=== PATIENT | female | born 1980 | race Caucasian/White ===

== ENCOUNTER 2017-03-27 23:02 | Emergency (ER) | payer OTHER ==
[~2017-03-27] VITALS: Ht 167.6 cm; Wt 123.1 kg
[2017-03-28] MEDS ORDERED: ONDANSETRON 2MG/ML, 2ML ONE (00:59)
[2017-03-28] MEDS ORDERED: MORPHINE SULFATE 4 MG/ML, 1ML ONE (00:59)
[2017-03-28] MEDS ORDERED: MORPHINE SULFATE 4 MG/ML, 1ML IVPush PRN (01:00)
[2017-03-28] MEDS ORDERED: SODIUM CHLORIDE FLUSH 10ML SYR IVF ONE (01:00)
[2017-03-28] MEDS ORDERED: ONDANSETRON 2MG/ML, 2ML IVPush ONE (01:00)
[2017-03-28] MEDS ORDERED: SODIUM CHLORIDE 0.9% 1,000ML IVBOLUS ONE (01:00)
[2017-03-28 01:16] LABS: HEMATOCRIT 41.6 % (34.6-47.8); WHITE BLOOD COUNT 13.2 x10^3/uL (3.4-10)
[2017-03-28 01:22] LABS: ASPARTATE AMINO TRANSFERASE 13 U/L (15-37); BLOOD UREA NITROGEN 7 mg/dL (7-18)
[2017-03-28 02:12] LABS: HCG UR OBC PASS
[2017-03-28 02:16] LABS: PATH.CAST-FLAG NOT PRESENT; SPERM-FLAG NOT PRESENT; SRC-FLAG NOT PRESENT; XTAL-FLAG NOT PRESENT; YLC-FLAG NOT PRESENT
[2017-03-28 04:18] VITALS: BP 149/89
== END 2017-03-28 04:31 | disposition home or self-care (01) ==
LOC: ED 03-28 02:10
DX: K80.20 Calculus of gallbladder without cholecystitis without obstruction (principal); I10 Essential (primary) hypertension; E78.5 Hyperlipidemia, unspecified
CPT/HCPCS: 36415; 76700; 80053; 81001; 81025; 83690; 85025; 87086; 96361; 96374; 96375; 99285; J2405; J7030

== ENCOUNTER → 2017-05-04 | Outpatient (CLI) | payer OTHER | LOC: STAR 09:28 | PROVIDERS: ATTEND Surgery Vascular Surgery | DX: Z02.9 Encounter for administrative examinations, unspecified (principal) ==

== ENCOUNTER 2017-05-13 10:52 | Day surgery (SDC) | payer OTHER ==
[~2017-05-13] VITALS: Ht 165.1 cm; Wt 116.9 kg
[~2017-05-13 10:52] MED LIST: BUPIVACAINE/PF 0.5% ONE
[2017-05-13] MEDS ORDERED: MIDAZOLAM 1 MG/ML, 2ML ONE (11:35)
[2017-05-13] MEDS ORDERED: ROCURONIUM 10 MG/ML ONE ×2 (11:36→12:44)
[2017-05-13] MEDS ORDERED: PROPOFOL 10 MG/ML, 20ML ONE (11:36)
[2017-05-13] MEDS ORDERED: FENTANYL PF 100 MCG/2ML ONE ×3 (11:36→14:01)
[2017-05-13] MEDS ORDERED: DEXAMETHASONE 4 MG/ML, 1ML ONE ×3 (11:38→12:44)
[2017-05-13] MEDS ORDERED: ONDANSETRON 2MG/ML, 2ML ONE (11:38)
[2017-05-13] MEDS ORDERED: CEFOTETAN PMX 2GM/50ML 50 ML ONE (11:38)
[2017-05-13 11:45] VITALS: BP 149/98
[2017-05-13] MEDS ORDERED: ERYT30GE2 EACHEYE (11:49)
[2017-05-13 11:59] LABS: HCG UR LOT HCG7030192
[2017-05-13 12:04] LABS: HCG UR OBC PASS
[2017-05-13] MEDS ORDERED: LACTATED RINGERS 1,000 ML IV SCH (12:08)
[2017-05-13] MEDS ORDERED: ACETAMINOPHEN 325 MG TABLET PO PRN (12:30)
[2017-05-13] MEDS ORDERED: ONDANSETRON 2MG/ML, 2ML IVPush PRN (12:30)
[2017-05-13] MEDS ORDERED: OXYcodone 5 MG/5 ML ORAL.SOL UDC PO PRN (12:30)
[2017-05-13] MEDS ORDERED: MEPERIDINE/PF 25MG/0.5ML IVPush PRN (12:30)
[2017-05-13] MEDS ORDERED: HYDROmorphone 1 MG/ML, 1ML IV PRN (12:30)
[2017-05-13] MEDS ORDERED: PROMETHAZINE 25 MG/ML, 1ML IV PRN (12:30)
[2017-05-13] MEDS ORDERED: GLYCOPYRROLATE 0.2MG/1ML, 5ML ONE (12:44)
[2017-05-13] MEDS ORDERED: NEOSTIGMINE 1 MG/ML, 10ML ONE (12:44)
[2017-05-13] MEDS ORDERED: ACETAMINOPHEN 650 MG/20.3 ML UDC ONE (13:43)
[2017-05-13] MEDS ORDERED: MEPERIDINE/PF 25MG/0.5ML ONE (13:43)
[2017-05-13] MEDS ORDERED: ACETAMINOPHEN 325 MG TABLET ONE (13:43)
[2017-05-13] MEDS ORDERED: OXYcodone 5 MG/5 ML ORAL.SOL UDC ONE (13:44)
[2017-05-13] MEDS: FENTANYL PF 100 MCG/2ML IV PRN ×2 (14:04→14:25)
== END 2017-05-13 17:25 ==
LOC: OUT 10:52
PROVIDERS: ATTEND Surgery Vascular Surgery
DX: K80.20 Calculus of gallbladder without cholecystitis without obstruction (principal)
CPT/HCPCS: 47562; 81025; 88304; J1100; J2175; J2250; J2405; J2704; J2710; J3010; J3490; J7120; S0074